=== PATIENT | female | born 1985 | race Caucasian/White ===

== ENCOUNTER 2017-12-20 15:26 | Emergency (ER) | payer BC, SELFPAY ==
[2017-12-20 15:29] VITALS: BP 121/85; PULSE 86; RESP 24; TEMP 36.8; O2SAT 98; BMI 30.6
[2017-12-20] MEDS: Ondansetron 4 MG/2 ML Vial IV (15:55)
[2017-12-20] MEDS: Morphine 4 MG/ML Syringe IV (15:56)
--- NOTE | 2017-12-20 16:00 | ED.VISSUMM ---
- ER Visit Summary Date of Service: 12/20/17 Chief Complaint: Abdominal pain History of Present Illness: The patient is a 32 F who presents with severe abdominal pain. She just found out today that she is . She is estimated at 45 weeks by dates. She complains of 3 weeks of suprapubic abdominal pain which is been mild. However 1 hour ago she abruptly had sudden onset severe sharp left-sided pelvic and abdominal pain which radiates through to the back. This is worse with position or palpation. She reports nausea with it but no vomiting. No diarrhea. She complains of urinary urgency. She states she feels like she needs to void but is unable to do so. She denies dysuria or hematuria. She has a history of kidney stones and states that this feels similar and is concerned she may have another kidney stone. No fevers. She has not had any imaging for as she just found out that she is today. Physical Examination: Afebrile vitals are stable her blood pressure is 129/85, heart rate 86 Patient tearful and appears to be in significant pain Moist mucous membranes Heart regular rate and rhythm Lungs are clear Abdomen soft nondistended she does have left lower quadrant abdominal and pelvis tenderness she does not have guarding or rebound she is unable to sit up in bed as this produces significant pain Test Results: CBC BMP unremarkable. INR normal. UA shows 25 leukocyte esterase, 50 blood otherwise normal. Quantitative hCG 188. Blood type is B+. Pelvic ultrasound shows a 3.1 cm right ovarian cyst and a heterogenous endometrium. Renal ultrasound shows mild hydronephrosis on the left with nonobstructive renal calculi. Emergency Department Course and Treatment: Based on patient's clinical presentation I was very concerned for possible ruptured ectopic. I did perform [id number] ultrasound and and unable to visualize an IUP. I do not appreciate free pelvic fluid however. I spoke to Dr. Olmstead immediately after I saw the patient. Given that her heart rate blood pressure stable we will obtain laboratory studies and send her for a pelvic ultrasound. Patient's quant returned at 188. Therefore likelihood and suspicion for ectopic was significantly less. We also ordered a renal ultrasound. Given that she does have hydronephrosis and nonobstructive calculi I suspect that she does have a ureteral calculus or a recently passed ureteral calculus. She feels much better on reevaluation after treatment with morphine and Zofran. She was advised of the need for further outpatient evaluation including repeat laboratory studies and repeat pelvic ultrasound. She was also referred to urology. She understands to return for new or worsening symptoms. She was discharged home. Treatment Plan: [] Disposition: Discharge Impression: Urolithiasis First trimester This note was generated with Zo[employer] dictation software. It may contain incorrect words, spelling, and punctuation that were not noted in review of the chart prior to signing ED Disposition - Plan for ED Patient: Chief Complaint: Flank Pain Referrals: Care Physician,No Primary [Primary Care Provider] -
[2017-12-20] MEDS: 0.9% Normal Saline 1,000 ML 1000 ML IV (16:04)
[2017-12-20 16:14] LABS: Absolute Lymphocyte Count 2.79 X10^3/ul (0.83-4.51); Absolute Neutrophil Count 6.1 X10^3/uL (2.0-7.7); Basophil# 0.04 X10^3/uL; Basophil% 0.4 % (0-1); Eosinophil# 0.16 X10^3/uL; Eosinophils% 1.5 % (0-5); Hematocrit 43.1 % (37-47); Hemoglobin 14.3 g/dl (12.0-15.0); Lymphocyte # 2.79 X10^3/ul (4.0); Lymphocyte % 26.7 % (19-41); Mean Corp Hgb Conc 33.2 g/gl (32-36); Mean Corpuscular Hgb 29.1 pg (27.0-32.0); Mean Corpuscular Volume 87.6 fL (81-99); Mean Platelet Vol. 10.7 fl (6.2-12.0); Monocyte# 1.38 X10^3/uL; Monocyte% 13.2 % (0-10); Neutrophil # 6.05 X10^3/uL (2.7-7.7); Neutrophil % 58.1 % (47-70); POSITIVE COUNT NO; POSITIVE DIFFERENTIAL NO; POSITIVE MORPHOLOGY NO; Platelet Count 278 K/mm3 (150-450); RBC Distribution Width CV 12.8 % (11.6-14.6); Red Blood Count 4.92 M/mm3 (4.2-5.4); White Blood Count 10.4 K/mm3 (4.4-11.0)
[2017-12-20 16:25] LABS: BUN 10 mg/dL (7-18); BUN/Creat Ratio 10.3 RATIO (10-20); Calcium,Total 8.7 mg/dL (8.5-10.1); Chloride 108 mmol/L (98-107); Creatinine, Serum 0.97 mg/dL (0.55-1.02); EST Glomerular Filtration Rate 71 mL/min (>60); Est Glom Filt Rate - Afr Amer 86 mL/min (>60); Estimated Creatinine Clearance 75.62 ml/min; Glucose 102 mg/dL (74-106); Potassium 3.7 mmol/L (3.5-5.1); Sodium Level 139 mmol/L (136-145)
[2017-12-20 16:26] LABS: Anion Gap 7 (5-15)
[2017-12-20 16:39] LABS: hCG Titer Quant., Serum 188 mIU/mL (<9 non-preg)
[2017-12-20 16:48] LABS: Bacteria 0 SEEN /hpf (None Seen); Mucous, Urine 0 SEEN /hpf (<or=2+); Red Blood Cells-Urine 0 SEEN /hpf (0-5); Squamous Epithelial Cells - UA 0 SEEN /hpf (5-10)
[2017-12-20 16:49] VITALS: BP 108/69; BP 120/74; BP 127/77; PULSE 70; PULSE 75; PULSE 77
[2017-12-20 16:50] VITALS: BP 121/81; PULSE 86; RESP 15; O2SAT 98
[2017-12-20 16:53] LABS: Color, Urine Yellow (Yellow); Glucose, Dipstick Normal (Normal); Ketone-Dipstick Negative (Negative); Leukocyte Esterase-Dipstick 25 /ul (Negative); Nitrite-Dipstick Negative (Negative); Occult Blood-Urine 50 /ul (Negative); Protein-Dipstick Negative (Negative); Urine Bilirubin Dipstick Negative (Negative); Urine Clarity Clear (Clear); Urine Urobilinogen Normal (Normal); Urine pH 6.5 (5.0 - 8.0)
[2017-12-20 16:59] LABS: Prothrombin Time (Protime)PT. 13.3 SECONDS (11.7-14.9)
[2017-12-20 17:01] LABS: White Blood Cells 0-5 SEEN /hpf (0-5)
[2017-12-20 18:00] VITALS: PULSE 81; RESP 19; O2SAT 98
--- NOTE | 2017-12-20 18:40 | ED.DEP ---
ED Disposition - Plan for ED Patient: Chief Complaint: Flank Pain Instructions: ED Stone Renal W Colic, ED Preg Established Normal Sxs Referrals: Care Physician,No Primary [Primary Care Provider] - Sierra Olmstead MD [STAFF PHYSICIAN] - Pedro Cano MD [STAFF PHYSICIAN] -
[2017-12-20 19:14] VITALS: BP 113/60; PULSE 80; RESP 19; O2SAT 98
--- NOTE | 2017-12-20 19:17 | ED.RN ---
REVIEWED D/C INSTRUCTIONS, FOLLOW UP CARE, AND S/S THAT WOULD WARRANT A RETURN TO THE ED WITH PT. PT VERBALIZED AN UNDERSTANDING AND DENIES FURTHER QUESTIONS FOR THIS RN. PT SKIN P/W/D, RESP EVEN AND UNLABORED, PT A&O X 3, NO DISTRESS NOTED. PT AMBULATED OUT OF ED, GAIT STEADY.
== END 2017-12-20 19:18 | disposition home or self-care (01) ==
LOC: ED 16:28
PROVIDERS: Emergency Provider Emergency Medicine
DX: O26.891 Other specified pregnancy related conditions, first trimester (principal); N13.2 Hydronephrosis with renal and ureteral calculous obstruction; O34.81 Maternal care for other abnormalities of pelvic organs, first trimester; N83.201 Unspecified ovarian cyst, right side; Z87.442 Personal history of urinary calculi; Z79.899 Other long term (current) drug therapy; Z3A.01 Less than 8 weeks gestation of pregnancy
CPT/HCPCS: 76770; 76817; 80048; 81001; 84702; 85025; 85610; 86900; 96361; 96374; 96375; 99285; A4216; J2405

== ENCOUNTER → 2017-12-28 13:05 | Outpatient (CLI) | payer BC, SELFPAY ==
[2017-12-28 14:26] LABS: hCG Titer Quant., Serum 4255 mIU/mL (<9 non-preg)
== END ==
DX: O26.891 Other specified pregnancy related conditions, first trimester (principal); R10.9 Unspecified abdominal pain
CPT/HCPCS: 36415; 84702

== ENCOUNTER → 2018-01-14 13:11 | Outpatient (CLI) | payer BC, SELFPAY ==
[2018-01-14 16:36] LABS: Chlamydia Trachomatis by PCR Negative (Negative); Neisserai gonorrhoeae by PCR Negative (Negative); Probe Check PASS; Sample Adequacy Control PASS; Specimen Processing Control PASS
[2018-01-19 13:20] LABS: HPV APTIMA, High Risk Negative (Negative)
== END ==
PROVIDERS: Visit Provider Obstetrics & Gynecology
DX: Z12.4 Encounter for screening for malignant neoplasm of cervix (principal); Z34.90 Encounter for supervision of normal pregnancy, unspecified, unspecified trimester
CPT/HCPCS: 87086; 87491; 87591; 88175; G0145

== ENCOUNTER → 2018-02-11 11:11 | Outpatient (CLI) | payer BC, SELFPAY ==
[2018-02-11 11:49] LABS: Absolute Lymphocyte Count 2.01 X10^3/ul (0.83-4.51); Absolute Neutrophil Count 6.5 X10^3/uL (2.0-7.7); Basophil# 0.02 X10^3/uL; Basophil% 0.2 % (0-1); Eosinophil# 0.04 X10^3/uL; Eosinophils% 0.4 % (0-5); Hematocrit 44.1 % (37-47); Hemoglobin 14.8 g/dl (12.0-15.0); Lymphocyte # 2.01 X10^3/ul (4.0); Lymphocyte % 21.8 % (19-41); Mean Corp Hgb Conc 33.6 g/gl (32-36); Mean Corpuscular Hgb 29.4 pg (27.0-32.0); Mean Corpuscular Volume 87.5 fL (81-99); Mean Platelet Vol. 10.2 fl (6.2-12.0); Monocyte# 0.66 X10^3/uL; Monocyte% 7.2 % (0-10); Neutrophil # 6.49 X10^3/uL (2.7-7.7); Neutrophil % 70.3 % (47-70); Platelet Count 249 K/mm3 (150-450); RBC Distribution Width CV 13.4 % (11.6-14.6); RBC Distribution Width SD 42.9 fl (35.1-43.9); Red Blood Count 5.04 M/mm3 (4.2-5.4); White Blood Count 9.2 K/mm3 (4.4-11.0)
[2018-02-11 11:50] LABS: POSITIVE COUNT NO; POSITIVE DIFFERENTIAL NO; POSITIVE MORPHOLOGY NO
[2018-02-11 13:11] LABS: HIV - WCH Non-Reactive (Nonreactive); Rubella IgG 107.5 IU/mL
[2018-02-12 05:44] LABS: Rapid Plasmin Reagin (RPR) NONREACTIVE (NONREACTIVE)
[2018-02-16 11:17] LABS: HEPATITIS B SURFACE AG Negative (Negative)
== END ==
PROVIDERS: Referring Provider Obstetrics & Gynecology; Visit Provider Obstetrics & Gynecology
DX: Z34.81 Encounter for supervision of other normal pregnancy, first trimester (principal)
CPT/HCPCS: 85025; 86592; 86703; 86762; 86850; 86900; 87340

== ENCOUNTER → 2018-06-04 15:13 | Outpatient (CLI) | payer BC, SELFPAY ==
[2018-06-04 14:09] VITALS: BMI 32.1
[2018-06-04 15:49] LABS: Absolute Lymphocyte Count 1.81 X10^3/ul (0.83-4.51); Absolute Neutrophil Count 6.2 X10^3/uL (2.0-7.7); Basophil# 0.02 X10^3/uL; Basophil% 0.2 % (0-1); Eosinophil# 0.05 X10^3/uL; Eosinophils% 0.6 % (0-5); Hematocrit 37.4 % (37-47); Hemoglobin 12.5 g/dl (12.0-15.0); Lymphocyte # 1.81 X10^3/ul (4.0); Mean Corp Hgb Conc 33.4 g/gl (32-36); Mean Corpuscular Hgb 29.3 pg (27.0-32.0); Mean Corpuscular Volume 87.8 fL (81-99); Mean Platelet Vol. 10.5 fl (6.2-12.0); Monocyte# 0.94 X10^3/uL; Monocyte% 10.4 % (0-10); Neutrophil # 6.16 X10^3/uL (2.7-7.7); Neutrophil % 68.1 % (47-70); Platelet Count 227 K/mm3 (150-450); RBC Distribution Width CV 12.6 % (11.6-14.6); RBC Distribution Width SD 39.4 fl (35.1-43.9); Red Blood Count 4.26 M/mm3 (4.2-5.4)
[2018-06-04 15:50] LABS: POSITIVE COUNT NO; POSITIVE DIFFERENTIAL NO; POSITIVE MORPHOLOGY NO
[2018-06-04 16:14] LABS: Glucose Challenge Gest 1H 50g 98 mg/dL (70-140)
== END ==
PROVIDERS: Referring Provider Obstetrics & Gynecology; Visit Provider Obstetrics & Gynecology
DX: Z34.90 Encounter for supervision of normal pregnancy, unspecified, unspecified trimester (principal)
CPT/HCPCS: 36415; 82950; 85025

== ENCOUNTER 2018-06-22 18:50 | Outpatient (CLI) | payer BC, SELFPAY ==
[2018-06-04 14:09] VITALS: BMI 32.1
[2018-06-22 19:15] VITALS: BMI 32.1
[2018-06-22 19:46] LABS: ROM Internal Control Test YES-OK TO RESULT pt. (Internal QC); ROM Patient Test Negative (Negative); Record Kit Lot#, ROM+ J7836
[2018-06-22 20:12] LABS: Mucous, Urine 0 SEEN /hpf (<or=2+); Red Blood Cells-Urine 0 SEEN /hpf (0-5)
[2018-06-22 20:27] LABS: Color, Urine Yellow (Yellow); Glucose, Dipstick Normal (Normal); Leukocyte Esterase-Dipstick 25 /ul (Negative); Nitrite-Dipstick Negative (Negative); Occult Blood-Urine 10 /ul (Negative); Protein-Dipstick 15 mg/dl (Negative); Urine Bilirubin Dipstick Negative (Negative); Urine Clarity Clear (Clear); Urine Urobilinogen Normal (Normal)
[2018-06-22 20:31] LABS: Ketone-Dipstick 150 mg/dl (Negative)
[2018-06-22 20:36] LABS: Bacteria RARE /hpf (None Seen); White Blood Cells 0-5 SEEN /hpf (0-5)
[2018-06-22 20:37] LABS: Squamous Epithelial Cells - UA 0-5 SEEN /hpf (5-10)
[2018-06-22 20:54] LABS: Fetal Fibronectin Negative
--- NOTE | 2018-06-23 21:30 | OB.TRI.HP_ITS ---
- Problem List (1) Threatened labor Status: Acute History of Present Illness Date of Service: 06/22/18 Was patient seen by the physician?: No Reason For Visit: RULE OUT LABOR History of Present Illness: 30 weeks presents with contractions and not feeling well Allergies penicillin G Allergy (Mild, Verified 06/04/18 14:09) Other - Pertinent Past Medical History Medical History: Past Medical History (Last Reviewed 06/04/18 @ 14:10 by Kari Ramires) Anxiety and depression Back problem Keyanna's disease Headache Hypothyroidism Kidney stones Recurrent UTI Surgical History: Past Surgical History (Last Reviewed 06/04/18 @ 14:10 by Kari Ramires) History of hernia surgery History of tonsillectomy eye surgery gallbladder surgery kidney stone surgery laparoscopic surgery Laboratory Studies: Laboratory Tests 06/22/18 06/22/18 06/22/18 Range/Units 19:55 19:55 19:10 Urine Color Yellow (Yellow) Urine Clarity Clear (Clear) Urine pH 7.0 (5.0 - 8.0) Ur Specific [place] 1.010 (1.002-1.030) Urine Protein 15 H (Negative) mg/dl Urine Glucose (UA) Normal (Normal) mg/dl Urine Ketones 150 H (Negative) mg/dl Urine Occult Blood 10 H (Negative) /ul Urine Nitrite Negative (Negative) Urine Bilirubin Negative (Negative) mg/dL Urine Urobilinogen Normal (Normal) mg/dl Ur Leukocyte Esterase 25 H (Negative) /ul Urine RBC 0 SEEN (0-5) /hpf Urine WBC 0-5 SEEN (0-5) /hpf Ur Squamous Epith Cells 0-5 SEEN (5-10) /hpf Urine Bacteria RARE (None Seen) /hpf Urine Mucus 0 SEEN (<or=2+) /hpf Vag Amniotic Fld Detect Negative (Negative) Fibronectin Negative NST - FHR Rate Baby A Baseline: 130 Variability:: Moderate Accelerations:: 15 x 15 Decelerations:: None NST Reactive:: Yes FHR Category:: Category I Uterine Activity:: irritability Impression/Plan threatened ptl- ffn negative rom plus negative, co flank pain- suspect kidney s tone (has history), sent urine culture
== END 2018-06-22 21:15 | disposition home or self-care (01) ==
LOC: WPOUT 18:59 → OBT 19:00
PROVIDERS: Referring Provider Obstetrics & Gynecology; Visit Provider Obstetrics & Gynecology
DX: O60.03 Preterm labor without delivery, third trimester (principal); O99.283 Endocrine, nutritional and metabolic diseases complicating pregnancy, third trimester; E06.3 Autoimmune thyroiditis; E03.9 Hypothyroidism, unspecified; O99.343 Other mental disorders complicating pregnancy, third trimester; F32.9 Major depressive disorder, single episode, unspecified; F41.9 Anxiety disorder, unspecified; Z79.899 Other long term (current) drug therapy; Z87.442 Personal history of urinary calculi; Z87.440 Personal history of urinary (tract) infections; Z3A.30 30 weeks gestation of pregnancy
CPT/HCPCS: 59025; 59050; 81001; 82731; 84112; 87086; 87088; 99218; G0378

== ENCOUNTER → 2018-07-15 14:55 | Outpatient (CLI) | payer BC, SELFPAY ==
[2018-07-15 14:52] VITALS: BMI 31.8
[2018-07-15 15:26] LABS: Absolute Lymphocyte Count 2.01 X10^3/ul (0.83-4.51); Basophil# 0.02 X10^3/uL; Basophil% 0.2 % (0-1); Eosinophil# 0.15 X10^3/uL; Eosinophils% 1.6 % (0-5); Hematocrit 35.5 % (37-47); Hemoglobin 11.7 g/dl (12.0-15.0); Lymphocyte # 2.01 X10^3/ul (4.0); Lymphocyte % 21.7 % (19-41); Mean Corpuscular Hgb 28.2 pg (27.0-32.0); Mean Corpuscular Volume 85.5 fL (81-99); Mean Platelet Vol. 10.8 fl (6.2-12.0); Monocyte# 0.99 X10^3/uL; Monocyte% 10.7 % (0-10); Neutrophil # 6.04 X10^3/uL (2.7-7.7); Neutrophil % 65.3 % (47-70); Platelet Count 221 K/mm3 (150-450); RBC Distribution Width CV 12.7 % (11.6-14.6); RBC Distribution Width SD 38.7 fl (35.1-43.9); Red Blood Count 4.15 M/mm3 (4.2-5.4); White Blood Count 9.3 K/mm3 (4.4-11.0)
[2018-07-15 15:30] LABS: POSITIVE COUNT NO; POSITIVE DIFFERENTIAL NO; POSITIVE MORPHOLOGY NO
[2018-07-15 15:48] LABS: ALB/GLOB Ratio 0.6 RATIO (0.9-2.4); AST(SGOT) 20 U/L (15-37); Alanine Aminotransfer ALT/SGPT 20 U/L (13-56); Albumin, Serum 2.4 g/dL (3.2-5.0); Alkaline Phosphatase 122 U/L (45-117); Anion Gap 8 (5-15); BUN 4 mg/dL (7-18); Calcium,Total 8.1 mg/dL (8.5-10.1); Chloride 108 mmol/L (98-107); Creatinine, Serum 0.57 mg/dL (0.55-1.02); EST Glomerular Filtration Rate 130 mL/min (>60); Est Glom Filt Rate - Afr Amer 158 mL/min (>60); Globulin 3.7 g/dL (2.2-4.2); Glucose 93 mg/dL (74-106); Potassium 3.2 mmol/L (3.5-5.1); Protein, Total 6.1 g/dL (6.4-8.2); Sodium Level 137 mmol/L (136-145)
== END ==
PROVIDERS: Visit Provider Obstetrics & Gynecology
DX: L29.9 Pruritus, unspecified (principal)
CPT/HCPCS: 36415; 80053; 85025

== ENCOUNTER → 2018-07-26 17:07 | Outpatient (CLI) | payer BC, SELFPAY ==
[2018-07-26 15:57] VITALS: BMI 32.4
[2018-07-26 17:31] LABS: Absolute Lymphocyte Count 2.17 X10^3/ul (0.83-4.51); Absolute Neutrophil Count 5.7 X10^3/uL (2.0-7.7); Basophil# 0.02 X10^3/uL; Basophil% 0.2 % (0-1); Eosinophil# 0.19 X10^3/uL; Hematocrit 34.6 % (37-47); Hemoglobin 11.6 g/dl (12.0-15.0); Lymphocyte # 2.17 X10^3/ul (4.0); Lymphocyte % 23.2 % (19-41); Mean Corp Hgb Conc 33.5 g/gl (32-36); Mean Corpuscular Hgb 28.2 pg (27.0-32.0); Mean Corpuscular Volume 84.2 fL (81-99); Mean Platelet Vol. 10.5 fl (6.2-12.0); Monocyte# 1.22 X10^3/uL; Neutrophil # 5.74 X10^3/uL (2.7-7.7); Neutrophil % 61.4 % (47-70); Platelet Count 203 K/mm3 (150-450); RBC Distribution Width SD 39.5 fl (35.1-43.9); Red Blood Count 4.11 M/mm3 (4.2-5.4); White Blood Count 9.4 K/mm3 (4.4-11.0)
[2018-07-26 18:02] LABS: POSITIVE COUNT NO; POSITIVE DIFFERENTIAL NO; POSITIVE MORPHOLOGY NO
[2018-07-26 18:16] LABS: ALB/GLOB Ratio 0.6 RATIO (0.9-2.4); AST(SGOT) 21 U/L (15-37); Alanine Aminotransfer ALT/SGPT 19 U/L (13-56); Albumin, Serum 2.4 g/dL (3.2-5.0); Alkaline Phosphatase 134 U/L (45-117); Anion Gap 5 (5-15); BUN 4 mg/dL (7-18); BUN/Creat Ratio 7.6 RATIO (10-20); Calcium,Total 8.2 mg/dL (8.5-10.1); Chloride 108 mmol/L (98-107); Creatinine, Serum 0.52 mg/dL (0.55-1.02); EST Glomerular Filtration Rate 144 mL/min (>60); Est Glom Filt Rate - Afr Amer 174 mL/min (>60); Globulin 3.7 g/dL (2.2-4.2); Glucose 84 mg/dL (74-106); Potassium 3.5 mmol/L (3.5-5.1); Protein, Total 6.1 g/dL (6.4-8.2); Sodium Level 135 mmol/L (136-145)
== END ==
PROVIDERS: Referring Provider Obstetrics & Gynecology; Visit Provider Obstetrics & Gynecology
DX: L29.9 Pruritus, unspecified (principal)
CPT/HCPCS: 36415; 80053; 85025

== ENCOUNTER → 2018-08-02 14:46 | Outpatient (CLI) | payer BC, SELFPAY ==
[2018-07-26 15:57] VITALS: BMI 32.4
--- NOTE | 2018-08-02 14:49 | US_ITS ---
STUDY: SECOND AND THIRD TRIMESTER OBSTETRICAL ULTRASOUND - LIMITED REASON FOR EXAM: Female, 33 years old. Growth. LMP: November 20, 2017. PRIOR ULTRASOUND: December 20, 2017. TECHNIQUE: TECHNICAL QUALITY: Adequate. FINDINGS: There is a single intrauterine fetus. The fetus is in a cephalic presentation. There is demonstrated cardiac activity with a heart rate of 139 bpm. There is a normal amniotic fluid volume. The largest amniotic fluid pocket measures 7.9 cm. The amniotic fluid index (ELISEO) is 20.56 cm. The placenta is anterior in location and is not low lying. There are Grade 2 placental changes. The cervix measures 4.24 cm cm in length. BIOMETRY: BPD: 9.15 cm: 37 weeks, 1 days HC: 32.98 cm: 37 weeks, 4 days AC: 33 cm: 37 weeks, 0 days FL: 6.93 cm: 35 weeks, 4 days Age by LMP: 36 weeks, 3 days. CHINO by LMP: August 27, 2018.. age by current US: 36 weeks, 6 days. CHINO by current US: August 24, 2018. Estimated weight: 3000 grams, +/- 438 grams, 60 percentile. US/OB Limited With Biometrics IMPRESSION: 1. Live single intrauterine at 36 weeks, 6 days. CHINO is August 24, 2018. 2. EFW 3000 g. 3. ELISEO of 20.56 cm. 4. Anterior grade 2 placenta. 5. Vertex presentation. Electronically Signed: Bon Blevins DO at 23:59 EDT Tel [phone], Service support ,
--- NOTE | 2018-08-02 14:55 | US_ITS ---
STUDY: SECOND AND THIRD TRIMESTER OBSTETRICAL ULTRASOUND - LIMITED REASON FOR EXAM: Female, 33 years old. Growth. LMP: November 20, 2017. PRIOR ULTRASOUND: December 20, 2017. TECHNIQUE: TECHNICAL QUALITY: Adequate. FINDINGS: There is a single intrauterine fetus. The fetus is in a cephalic presentation. There is demonstrated cardiac activity with a heart rate of 139 bpm. There is a normal amniotic fluid volume. The largest amniotic fluid pocket measures 7.9 cm. The amniotic fluid index (ELISEO) is 20.56 cm. The placenta is anterior in location and is not low lying. There are Grade 2 placental changes. The cervix measures 4.24 cm cm in length. BIOMETRY: BPD: 9.15 cm: 37 weeks, 1 days HC: 32.98 cm: 37 weeks, 4 days AC: 33 cm: 37 weeks, 0 days FL: 6.93 cm: 35 weeks, 4 days Age by LMP: 36 weeks, 3 days. CHINO by LMP: August 27, 2018.. age by current US: 36 weeks, 6 days. CHINO by current US: August 24, 2018. Estimated weight: 3000 grams, +/- 438 grams, 60 percentile. US/Biophysical Prof W/O Non Stres IMPRESSION: 1. Live single intrauterine at 36 weeks, 6 days. CHINO is August 24, 2018. 2. EFW 3000 g. 3. ELISEO of 20.56 cm. 4. Anterior grade 2 placenta. 5. Vertex presentation. Electronically Signed: Bon Blevins DO at 23:59 EDT Tel [phone], Service support ,
[2018-08-02 17:51] LABS: Group B Strep DNA By PCR POSITIVE (Negative); Probe Check PASS
== END ==
PROVIDERS: Obstetrics & Gynecology; Referring Provider Nurse Practitioner Women's Health; Visit Provider Nurse Practitioner Women's Health
DX: O09.93 Supervision of high risk pregnancy, unspecified, third trimester (principal); Z3A.00 Weeks of gestation of pregnancy not specified
CPT/HCPCS: 76816; 76819; 87653

== ENCOUNTER 2018-08-02 16:35 | Inpatient (IN) | payer BC, SELFPAY ==
[2018-08-02 16:32] VITALS: BMI 32.4
--- NOTE | 2018-08-02 17:26 | PCM.HPOB.BLA ---
- Problem List (1) Abnormal genetic test during Status: Acute Comment: Abnormal NIPT- referred to [facility]. [facility]. (2) Cholestasis during Status: Acute Qualifiers: Comment: growth us RASHEEDA, twice weekly BPPS, weekly visits, and deliver at 37 weeks. kick counts. ursodiol (3) Depression affecting Status: Acute Comment: celexa, trazodone, and vistaril, encouraged counseling. (4) Family history of congenital heart defect Status: Acute Comment: ultrasound/consult with M possible echo (5) Genital herpes affecting Status: Acute Qualifiers: Comment: acyclovir at 36 weeks and PRN (6) Hypothyroidism (acquired) Status: Acute Comment: check tsh and free t4 every trimester, recently tested, sees endocrine (7) Low serum potassium Status: Acute (8) Status: Acute Qualifiers: Comment: carrier screening negative in the past. plan NIPT and AFP. Anatomy US-repeat 2 weeks reevaluate cardiac views. Growth US every 4 weeks. growth scan q4w after 28 weeks and weekly NST after 32 weeks (9) Supervision of high risk in third trimester Status: Acute Comment: PRR CHINO 08/27/18 girl Susan Sanchez Fredo History and Physical Date of Admission: 08/02/18 Intake Vital Signs 08/02/18 Height 5 ft 5 in 08/02/18 Weight: 198 lb 08/02/18 Body Mass Index (BMI) 32.9 Intake Visit Reasons: 36 WEEK OB/NST Chief Complaint: est ob Structured Cabling Technician Required: No Is patient in pain?: No Allergies penicillin G Allergy (Mild, Verified 08/02/18 16:03) Other Medications rizatriptan 10 mg tablet 10 mg PO ONCE 05/18/17 [History Confirmed 08/02/18] Vit No.130/Iron/Folic [ Vitamins] 1 ea PO DAILY 12/20/17 [History Confirmed 08/02/18] lactobacillus combination no.8 3 billion cell capsule 3,000 mmu cells PO DAILY 12/29/17 [History Confirmed 08/02/18] metoclopramide 10 mg tablet 10 mg PO TID 01/14/18 [History Confirmed 08/02/18] hydroxyzine HCl 25 mg tablet 25 mg PO TID-QID PRN #60 tab 03/11/18 [Rx Confirmed 08/02/18] Citalopram Hydrobromide [Citalopram HBr] 40 mg PO QDAY 06/22/18 [History Confirmed 08/02/18] Levothyroxine Sodium [Synthroid] See Rx Instructions .ROUTE .COMPLEX 06/22/18 [History Confirmed 08/02/18] valacyclovir 500 mg tablet 500 mg PO DAILY #90 tab 07/07/18 [Rx Confirmed 08/02/18] trazodone 100 mg tablet 50 mg PO QHS PRN #30 tab 07/26/18 [Rx Confirmed 08/02/18] ursodiol 300 mg capsule 300 mg PO TID #30 cap 07/31/18 [Rx Confirmed 08/02/18] Last Menstral Period: 11/20/17 Zika: Zika virus screening: Negative : No PFSH PFSH Medical History Anxiety and depression (Acute) Back problem (Acute) Keyanna's disease (Acute) Headache (Acute) Hypothyroidism (Acute) Kidney stones (Acute) Recurrent UTI (Acute) Surgical History History of hernia surgery (Acute) History of tonsillectomy (Acute) eye surgery (Acute) gallbladder surgery (Acute) kidney stone surgery (Acute) laparoscopic surgery (Acute) Family History Mother CVA (cerebral vascular accident) Myocardial infarction Heart disease Grandmother Cancer ovarian cancer Colon cancer Breast cancer Thyroid disorder Social History Smoking Status: Never smoker alcohol intake: never substance use type: does not use caffeine: Yes what type of physical activity do you participate in: none seatbelt use: always do you feel safe at home: Yes additional social history: -Pro- Patient works at [id number] Pregancy History 2 Elective abortions Hx Para 1 Spontaneous abortions Hx # Term Pregnancies Ectopic pregnancies Hx # Pregnancies Multiple births # of living children Past Pregnancies Del. Date Name GA/Weeks Outcome Route Bth Weight Gen Labor Lgth Anesthesia Del Locatn Provider FOB 11/19/13 Juma 37 live - full term 6lbs 9oz Male 29 hours epidural [facility] Delivery Date: 11/19/13 On 12/29/17 @ 10:13 Vanessa Wang No issues during . Had infection after delivery. HPI 36 WEEK OB/NST: Details: SAL BROWN is a 33 year old who presents for routine OB visit. OB Visit CHINO Calculator Estimated Delivery Date 08/27/18 Based on LMP (certain) 11/20/17 Current WG 36w 3d Number 1 Expected Delivery Route/Plan Specific Issue/Plans flu vaccine: declines minichart given: given tdap vaccine: given rhogam: na LARC form signed: [] labor support person: Fredo pain management: [] cut cord/dad catch: [] : [] PP control planned: [] special requests: [] Initial Weight: Not Recorded Date EGA Weight BP Urine Prot Glucose FHR FuHt Pres Mov CTX Dilation Effaced St Visit Note 02/11/18 11w 6d 183 lb 4 oz 116/62 Negative Negative 160 no vb crmaping 03/11/18 15w 6d 184 lb 148/90 160 elevated bp today but very anxious have been normal in the past. she has following with [facility] for abnormal NIPT screening, normal genetics. discussed risks of early placental insufficiency. recommend 40 mg celexa 05/12/18 24w 5d 191 lb 8 oz 120/72 Negative Negative 148 Active Doing well. Mood better with celexa. No VB, LOF 06/04/18 28w 0d 193 lb 4 oz 110/68 Negative Negative 140 28 Cephalic Active no vb lof good fm no regular ctx 07/02/18 32w 0d 191 lb 120/80 Negative Negative 140 32 Cephalic Active absent no vb lof good fm n oregular ctx growth us next week 07/15/18 33w 6d 194 lb 8 oz 128/78 Trace Negative 130 34 Cephalic Active absent no vb lof good fm no regular ctx. start weekly nsts 07/26/18 35w 3d 195 lb 126/74 Negative Negative 130 35 Cephalic Decr absent co itching- repeat liver enzymes and bile acids. reviwed kick counts and labor precautions discussed possible IOL 39 weeks 08/02/18 36w 3d 198 lb absent 1 5: 0 -3 only 6/8 BPP with decreased movement- recommend IOL due to cholestasis and borderline testing. plan fb and pitocin Visit Notes Visit Date: 08/02/18 ??only 6/8 BPP with decreased movement- recommend IOL due to cholestasis and borderline testing. plan fb and pitocin ??Sierra Olmstead MD on 08/02/18 Visit Date: 07/26/18 ??co itching- repeat liver enzymes and bile acids. reviwed kick counts and labor precautions discussed possible IOL 39 weeks ??Sierra Olmstead MD on 07/26/18 Visit Date: 07/15/18 ??no vb lof good fm no regular ctx. start weekly nsts ??Sierra Olmstead MD on 07/15/18 Visit Date: 07/02/18 ??no vb lof good fm n oregular ctx growth us next week ??Sierra Olmstead MD on 07/02/18 Visit Date: 06/04/18 ??no vb lof good fm no regular ctx ??Sierra Olmstead MD on 06/04/18 Visit Date: 05/12/18 ??Doing well. Mood better with celexa. No VB, LOF ??JESSICA Benavides on 05/12/18 Visit Date: 03/11/18 ??recommend 40 mg celexa ??Sierra Olmstead MD on 03/16/18 ??elevated bp today but very anxious have been normal in the past. she has following with [facility] for abnormal NIPT screening, normal genetics. discussed risks of early placental insufficiency. ??Sierra Olmstead MD on 03/16/18 Visit Date: 02/11/18 ??no vb crmaping ??Sierra Olmstead MD on 02/14/18 ACOG First Trimester First Trimester: Second Trimester Second Trimester: Signs and Symptoms of Labor, Selecting a care provider, Reproductive Life Planning, Care Planning, Tobacco Cessation, Depression/Anxiety and Intimate Partner Violence Third Trimester Third Trimester: Pain Management Plans, Labor support person(s), Immediate Larc, Movement Monitoring and Infant Feeding Yes ; discussed Trial of Labor after Counseling or discussed Circumcision preference Diagnostics Diagnostics Labs Blood Type B POSITIVE 02/11/18 Antibody Screen NEGATIVE 02/11/18 Hct 34.6 % (37-47) L 07/26/18 Hgb 11.6 g/dl (12.0-15.0) L 07/26/18 Obstetrics Ultrasound 08/02/18 Rubella IgG Antibody 107.5 IU/mL 02/11/18 RPR NONREACTIVE (NONREACTIVE) 02/11/18 Hep Bs Antigen Negative (Negative) 02/11/18 Glucose 1 Hr 50 gm 98 mg/dL (70-140) 06/04/18 Miscellaneous Test 07/26/18 Details: HIV: Urine Culture: Sequential Screen: NIPT Screen: ROS Const Reports system reviewed and no additional complaints, except as docu Card Reports system reviewed and no additional complaints, except as docu Resp Reports system reviewed and no additional complaints, except as docu GI Reports system reviewed and no additional complaints, except as docu, Reports nausea Reports system reviewed and no additional complaints, except as docu Musc Reports system reviewed and no additional complaints, except as docu Exam Const General: cooperative, healthy appearing, comfortable, anxious HENMT Head: normal to inspection Nose: external nose normal Face and sinus: normal facial exam Neck Neck: normal visual inspection, full ROM, no lymphadenopathy Thyroid: thyroid normal Chest Chest palpation & inspection: normal inspection of the chest Resp Effort & Inspection: normal respiratory effort GI Inspection: normal to inspection Palpation: soft, other (gravid uterus) Other: infant vertex and appropriate size for gestational age Other: Cervical Exam: Extrem General: pedal edema Assessment & Plan Problems 1. Cholestasis during in third trimester O26.613; K83.1 growth us RASHEEDA, twice weekly BPPS, weekly visits, and deliver at 37 weeks. kick counts. ursodiol 2. Abnormal test O28.9 Plan plan pitocin and fb iol epidural PRN [place] now check cmp Orders Orders: POC Urinalysis 2 Dip (Clinic) Today Culture, Group B Streptococcus Today O09.93 Group B Strep DNA By PCR Today O09.93 Coding Level of Care Code OB Routine Diagnoses Cholestasis during in third trimester O26.613; K83.1 ??Trimester: third trimester Abnormal test O28.9
[2018-08-02] MEDS: Lactated Ringers 1,000 ML 50 ML IV (17:30)
[2018-08-02] MEDS: Betamethasone/Betamethasone 30 MG/5 ML Vial 12 MG IM (17:35)
[2018-08-02 17:53] LABS: Absolute Lymphocyte Count 2.16 X10^3/ul (0.83-4.51); Absolute Neutrophil Count 7.9 X10^3/uL (2.0-7.7); Basophil# 0.02 X10^3/uL; Basophil% 0.2 % (0-1); Eosinophil# 0.08 X10^3/uL; Eosinophils% 0.7 % (0-5); Hematocrit 36.3 % (37-47); Hemoglobin 12.2 g/dl (12.0-15.0); Lymphocyte # 2.16 X10^3/ul (4.0); Lymphocyte % 19.6 % (19-41); Mean Corp Hgb Conc 33.6 g/gl (32-36); Mean Corpuscular Hgb 27.8 pg (27.0-32.0); Mean Corpuscular Volume 82.7 fL (81-99); Mean Platelet Vol. 11.6 fl (6.2-12.0); Monocyte# 0.89 X10^3/uL; Monocyte% 8.1 % (0-10); Neutrophil # 7.86 X10^3/uL (2.7-7.7); Neutrophil % 71.2 % (47-70); Platelet Count 223 K/mm3 (150-450); RBC Distribution Width CV 13.3 % (11.6-14.6); RBC Distribution Width SD 39.2 fl (35.1-43.9); Red Blood Count 4.39 M/mm3 (4.2-5.4)
[2018-08-02 17:54] LABS: POSITIVE COUNT NO; POSITIVE DIFFERENTIAL NO; POSITIVE MORPHOLOGY NO
[2018-08-02 18:04] VITALS: BMI 32.8
[2018-08-02 18:12] LABS: ALB/GLOB Ratio 0.6 RATIO (0.9-2.4); AST(SGOT) 17 U/L (15-37); Alanine Aminotransfer ALT/SGPT 15 U/L (13-56); Albumin, Serum 2.5 g/dL (3.2-5.0); Alkaline Phosphatase 149 U/L (45-117); Anion Gap 8 (5-15); BUN 5 mg/dL (7-18); BUN/Creat Ratio 8.7 RATIO (10-20); Calcium,Total 8.4 mg/dL (8.5-10.1); Chloride 108 mmol/L (98-107); Creatinine, Serum 0.58 mg/dL (0.55-1.02); EST Glomerular Filtration Rate 128 mL/min (>60); Est Glom Filt Rate - Afr Amer 155 mL/min (>60); Globulin 3.9 g/dL (2.2-4.2); Glucose 62 mg/dL (74-106); Potassium 3.7 mmol/L (3.5-5.1); Protein, Total 6.4 g/dL (6.4-8.2); Sodium Level 137 mmol/L (136-145)
[2018-08-02] MEDS: 0.9% Normal Saline 100 ML IV.SOLN. INTRA-UTER (20:07)
[2018-08-02] MEDS: Oxytocin 30 units/NS 500 ml 30 UNITS/500 ML IV.SOLN IV (20:22)
[2018-08-02] MEDS: Nalbuphine 10 MG/ML Ampul IV (22:43)
[2018-08-03] MEDS: Lactated Ringers 1,000 ML 50 ML IV (02:49)
[2018-08-03] MEDS: Mag Hydrox/Al Hydrox/Simeth 30 ML UDC PO (02:49)
[2018-08-03] MEDS: Nalbuphine 10 MG/ML Ampul IV (04:04)
--- NOTE | 2018-08-03 06:19 | PLAC_PTH ---
PATIENT: SAL BROWN LOC: WP U#:[id number] AGE/SX: 33/F ROOM: WP010 RE08/02/[address]: Dr. Sierra Olmstead MD : 1985 BED: 1 DIS: 08/04/2018 SPEC #: [id number] RECD: 08/03/18 09:31 STATUS: [place] MED #: [id number] DOYLE: 08/03/18 06:[address]: Sierra Olmstead DEPT: SURGICAL PATHOLOGY RECD BY: Satya Kerr ENTERED: 08/03/18 10:48 SP TYPE: PLACENTA OTHR DR: No Primary Care Phys Tissues: Placenta, NOS Procedures: Surgery Specimen Level V HEADER OPERATION: Vaginal delivery PRE-OP DIAGNOSIS: Vaginal delivery TISSUE SUBMITTED: Placenta MICROSCOPIC DIAGNOSIS Placenta: Placental disc - third trimester placenta (597 gm). - Focal area of submembranous hematoma. Membranes - no pathologic diagnosis. Umbilical cord - three blood vessels and no pathologic diagnosis. SJ:maria teresa 08/05/18 COMMENT Focal area of separate blood clots are also noted. MICROSCOPIC DESCRIPTION Slides are reviewed. GROSS DESCRIPTION SPECIMEN: PLACENTA / CLINICAL INFORMATION: A. Weight: 2.776 KG B. Gestational Age: 36 weeks C. Sex: Female PLACENTAL WEIGHT (POST FIXATION): 597 gm PLACENTAL DIMENSIONS: 17 x 16 x 3.2 cm PLACENTAL SHAPE: Usual ovoid PLACENTAL WEIGHT FOR GESTATIONAL AGE: >99th percentile MEMBRANES - Present A. Insertion: Marginal B. Site of rupture from edge: At edge of placental disc C. Color of membrane: [place]ema-nye D. Abnormalities: None UMBILICAL CORD - Present A. Color: [place]ema-nye B. Insertion: Membranous C. Length: 29 cm D. Diameter: 1.5 cm E. Number of vessels: Three F. Abnormalities: None PLACENTAL DISC - Present A. Color of surface: [place] B. surface abnormalities: None C. Maternal cotyledons: Intact with minimal tears D. Attached retro placental clot: No clot E. Cut surface: Dark red and spongy F. Lesions: There is a submembranous hematoma measuring 14 x 10 x 0.8 cm G. Separate clot: 11 x 6 x 2 cm SECTIONS SUBMITTED: 1. Umbilical cord ( end notched) 2. Membrane roll and submembranous hematoma 3. Placental disc, and maternal surfaces 4. Placental disc, and maternal surfaces 5. Placental disc, and maternal surfaces AM:maria teresa 08/04/18 TC:5 CPT: 50800
[2018-08-03] MEDS: HYDROmorphone 1 MG/ML Syringe IV (06:23)
[2018-08-03] MEDS: Oxytocin 30 units/NS 500 ml 30 UNITS/500 ML IV.SOLN 334 UNITS IV (06:25)
--- NOTE | 2018-08-03 06:29 | OP.PCM_ITS ---
Problem List (1) Abnormal genetic test during Status: Acute Comment: Abnormal NIPT- referred to [facility]. [facility]. (2) Cholestasis during Status: Acute Qualifiers: Comment: growth us RASHEEDA, twice weekly BPPS, weekly visits, and deliver at 37 weeks. kick counts. ursodiol (3) Depression affecting Status: Acute Comment: celexa, trazodone, and vistaril, encouraged counseling. (4) Family history of congenital heart defect Status: Acute Comment: ultrasound/consult with M possible echo (5) Genital herpes affecting Status: Acute Qualifiers: Comment: acyclovir at 36 weeks and PRN (6) Hypothyroidism (acquired) Status: Acute Comment: check tsh and free t4 every trimester, recently tested, sees endocrine (7) Low serum potassium Status: Acute (8) Status: Acute Qualifiers: Comment: carrier screening negative in the past. plan NIPT and AFP. Anatomy US-repeat 2 weeks reevaluate cardiac views. Growth US every 4 weeks. growth scan q4w after 28 weeks and weekly NST after 32 weeks (9) Supervision of high risk in third trimester Status: Acute Comment: PRR CHINO 08/27/18 girl Susan Sanchez Fredo Report of Operation Date of Procedure: 08/04/18 Pre-Operative Diagnosis: iol cholestasis, abnormal testing Post-Operative Diagnosis: same Vaginal Delivery Maternal Presentation: Medically Indicated Induction iol 36w4d for abnormal testing 6/8 BPP with cholestasis. Method of Induction: Pitocin, [facility] Reason for Induction: - - cholestasis and abnormal BPP Amniotic Membrane Rupture Type: Artificial Amniotic Fluid Description: Clear Final CHINO: 08/27/18 Gestational age: 36 Weeks and 4 Days Date of Procedure: 08/03/18 Pre-Operative Diagnosis: iol cholestasis abnormal testing Post-Operative Diagnosis: same Surgery/ Procedure Performed: Spontaneous Vaginal Delivery Type of Anesthesia: Pudendal block with 1% lidocaine Description of Procedure: Patient began pushing and the vagina was prepped with Betadine and bilateral pudendal block was placed by a located in the bilateral ischial spines and going 2 cm medial and posterior into the sacrospinous ligament 10 cc of lidocaine was injected without complication and a small midline episiotomy was cut to aid in expedient delivery of the head and delivered the head in the RICO presentation. The head was delivered atraumatically and a loose nuchal cord ?1 was identified and easily reduced over the 's head. The anterior and posterior shoulders delivered without complication followed by the rest of the and the was placed on the maternal abdomen. Delayed cord clamping was employed for approximately 60 seconds. Cord was clamped and cut and gentle traction was applied to the cord and the placenta delivered spontaneously immediately following it was noted to be intact with three-vessel cord. The perineum and vagina were inspected and 1st degree perineal laceration was repaired in the usual fashion. EBL was 100 cc. Patient and infant tolerated delivery well. Presentation: RICO Placental Delivery Description: Spontaneous Placenta Disposition: [facility] Cord Vessel Description: 3 Vessels Cord Entanglement: Around neck x 1, loose A gender: Female Episiotomy Description: Midline, Perineal Extension/lac, 1st degree Laceration: Perineal Extension/lac, 1st degree Medications given after delivery: IV Pitocin Complications: None
[2018-08-03] MEDS: Oxytocin 30 units/NS 500 ml 30 UNITS/500 ML IV.SOLN 167 UNITS IV (06:55)
[2018-08-03] MEDS: Naproxen 250 MG Tablet 500 MG PO ×2 (07:37→16:02)
[2018-08-03] MEDS: Levothyroxine 112 MCG Tablet PO (08:17)
[2018-08-03 11:55] VITALS: BP 115/55; PULSE 90; RESP 14; TEMP 37.2; O2SAT 96
[2018-08-03] MEDS: Acetaminophen 500 MG Tablet 1000 MG PO ×2 (13:15→20:06)
[2018-08-03 15:40] VITALS: BP 109/61; PULSE 81; RESP 16; TEMP 36.8
[2018-08-03 20:00] VITALS: BP 110/64; PULSE 80; RESP 18; TEMP 36.6; O2SAT 98
[2018-08-04] MEDS: Naproxen 250 MG Tablet 500 MG PO (01:02)
[2018-08-04 01:03] VITALS: BP 108/62; PULSE 70; RESP 18; TEMP 36.6; O2SAT 99
[2018-08-04 05:00] VITALS: BP 108/62; PULSE 78; RESP 18; TEMP 36.6
[2018-08-04] MEDS: Levothyroxine 112 MCG Tablet PO (06:04)
[2018-08-04 08:00] VITALS: BP 101/51; PULSE 74; RESP 16; TEMP 36.7; O2SAT 96
--- NOTE | 2018-08-04 08:23 | PCM.PN.OB ---
Subjective: doing well no complaints pain controlled no CP SOB N V ambulating well tolerating po lochia moderate, going well - Physical Exam General: Alert, Oriented x3 Vital Signs Temp Pulse Resp BP Pulse Ox 98.1 F 74 16 101/51 L 96 08/04/18 08:00 08/04/18 08:00 08/04/18 08:00 08/04/18 08:00 08/04/18 08:00 Oxygen Delivery Method Room Air Weight: 197 lb 1.492 oz Body Mass Index (BMI) 32.8 Intake and Output for Last 24 Hours 08/02/18 08/03/18 08/04/18 23:59 23:59 23:59 Intake Total 1385 / 1385 Output Total 1200 / 1200 Balance 185 / 185 Medical Necessity - Tobacco Use Smoking Status: Never smoker Assessment/Plan All Active Problems (Last Reviewed 08/02/18 @ 16:03 by Kari Ramires) Supervision of high risk in third trimester (Acute) Cholestasis during (Acute) Low serum potassium (Acute) Abnormal genetic test during (Acute) Genital herpes affecting (Acute) (Acute) Family history of congenital heart defect (Acute) Depression affecting (Acute) Hypothyroidism (acquired) (Acute) Chronic pruritus (Resolved) Supervision of normal (Resolved) Threatened labor (Resolved) US repeat every 4 weeks, MFM at 32 weeks (Resolved) s/p PPD # 1 1. routine post delivery care 2. breast feeding- support given 3. rh positive 4. rubella immune
--- NOTE | 2018-08-04 09:47 | CASEMGMT ---
Addendum entered and electronically signed by Ame Odom 08/05/18 09:39: Reviewed and approve [employer] student audit intern documentation below. -Ame Odom, TONIO, LUNCH WAGON OPERATOR Original Note: Social Work Labor and Delivery Date of referral: 08/03/18 Time of referral: 1437 Referred by: Dr. Olmstead Date of intervention: 08/04/18 Time of intervention: 0920am Reason for Referral: history of depression and anxiety History obtained from: medical record, mother of baby (MOB) Concha Ramirez. Household composition: MOB lives with father of the baby Pro (FOB) and their son Juma (4) and now Maurice. MOB denies any history of domestic violence and reports no safety concerns. Patient's parent guardian status: MOB and FOB are . MOB and FOB do not have any children outside their relationship. Medical history: JOSE GUADALUPE has diagnosis of anxiety and depression. JOSE GUADALUPE began PNC at 11 weeks. Baby Maurice was born on 08/03/18 at 6lbs and 2oz with scores of 8 and 9. Educational Status: JOSE GUADALUPE has an associates degree and confirmed to be able to read, write, and comprehend. Financial Status: JOSE GUADALUPE works for the department of [employer] and will have roughly 12 weeks off work. DANIELA is in the and will have roughly two weeks off work. supplies: JOSE GUADALUPE reported to have car seat, crib, bassinet, clothing, diapers, wipes, and formula. Childcare/givers: JOSE GUADALUPE and FOB are primary caregivers. JOSE GUADALUPE reported that her mother and brother are supplemental caregivers. Transportation: JOSE GUADALUPE reported no issues with transportation. Programs/Agencies involved: JOSE GUADALUPE and DANIELA are not linked with any programs or agencies. JOSE GUADALUPE denied [facility] referral. Children Services/Legal Issues: JOSE GUADALUPE denied any history with children services or any legal issues. Behavioral Health Issues: Mental Health History: JOSE GUADALUPE has been diagnosed with depression and anxiety. JOSE GUADALUPE is prescribed celexa, trazodone, and vistaril for treatment. JOSE GUADALUPE also attends counseling at [email or web address] with counselor Shoshana. JOSE GUADALUPE denies past or present thoughts or attempts of suicide. Substance Use History: MOB denied any history of substance usage or current use. Family History: MOB did not report any concerns with family history. Drug Screens: JOSE GUADALUPE was not administered any drug screens. Family/Social Stressors: MOB did not report any stressors. Support systems: MOB reported that family is support system specifically her mother and brother. PPD/ Shaken baby/ Safe sleeping: MOB reviewed and understands safe sleeping and shaken baby precautions. MOB reviewed PDD signs and symptoms with social work professor audit intern and understands. ASSESSMENT: MOB was in room with FOB who was sleeping and baby Everlee who was also sleeping. MOB was calm and pleasant. MOB spoke about general information and answered social work professor interns questions appropriately. MOB also spoke about anxiety and depression with coping strategies of attending counseling, working out, and coloring. MOB reported to have post depression with of first baby Juma. MOB did not receive treatment for PPD and began celexa during this with Everlee to help with anxiety and depression. MOB reported that counseling has helped with loss of brother from 15 years ago and recent anxiety and PPD. MOB does not plan to stop counseling or celexa. MOB denies any current feelings of depression/PDD. MOB reports to be happy and excited about baby Everlee. PLAN: MOB to go home with baby. Social work provided PPD packet and [facility] Resources packet. WIC/[facility] information also provided. No other services indicated or requested at this time. -Jeannie Bone, [employer] Student Spectroscopist.
--- NOTE | 2018-08-04 10:27 | DCINST_ITS ---
Discharge Diet: No Restrictions Discharge Activity: Return to Normal Activity, May not drive while taking narcotic pain medications., May Shower May resume sexual activity in: 4-6 weeks Call your doctor if your incision/area has: Continuous Slow Oozing, Sudden Increased Bleeding, Increased Pain/ Swelling, Increased Redness, Foul Smelling Discharge Additional Instructions: If you experience any of the following, contact your healthcare provider. * Bleeding that soaks a pad every hour for 2 hours * Fever 100.4 or higher * Unrelieved incision or abdominal pain * Swelling, redness, discharge or bleeding from your incision or episiotomy site * Your incision begins to separate * Problems urinating (including inability to urinate or burning while urinating). * Visual changes * Severe headache * Flu-like symptoms * Pain or redness in one of both of your breasts * Pain, warmth, tenderness or swelling in your legs, especially the calf area * Frequent nausea and vomiting * Symptoms of depression or anxiety If you experience any of the following, call 911 or go to the nearest Emergency Room. * Chest pain * Problems breathing * Seizure activity * Partial or complete paralysis of a body part, slurred speech, weakness or drooping of the face, or a sudden inability to walk or hold your balance Allergies/Adverse Reactions: Allergies penicillin G Allergy (Mild, Verified 08/02/18 18:07) Other yeast infections Medications to take at Discharge Vit No.130/Iron/Folic [ Vitamins] 1 ea PO DAILY 12/20/17 lactobacillus combination no.8 3 billion cell capsule 3,000 mmu cells PO DAILY 12/29/17 Flucelvax Quad [id number] (PF) 60 mcg (15 mcg x 4)/0.5 mL IM syringe 0.5 ml IM ONCE #1 ml NS 02/11/18 Citalopram Hydrobromide [Citalopram HBr] 40 mg PO QDAY 06/22/18 Levothyroxine Sodium [Synthroid] See Rx Instructions .ROUTE .COMPLEX 06/22/18 Ursodiol 300 mg PO TID 08/02/18 Valacyclovir HCl [Valtrex] 500 mg PO DAILY 08/02/18 Please Follow Up With: Sierra Olmstead MD - [phone] When: Call to make an appointment with your doctor in 6 weeks. If you had elevated Blood pressure or 4th degree laceration you will need to be seen in 2 weeks. Primary Care Physician: Care Physician,No Primary [Primary Care Provider] - Test Results: Test results from this visit will be discussed in further detail at your follow- up appointment, if applicable.
[2018-08-04 13:56] VITALS: BP 115/62; PULSE 82; RESP 18; TEMP 36.8; O2SAT 97
[2018-08-04] MEDS: Acetaminophen 500 MG Tablet 1000 MG PO (14:53)
[2018-08-05 14:34] LABS: Pathology Specimen OB SEE PATHOLOGY REPORT
== END 2018-08-04 17:45 | disposition home or self-care (01) | DRG 805 ==
PROVIDERS: Admitting Provider Obstetrics & Gynecology; Referring Provider Obstetrics & Gynecology; Visit Provider Obstetrics & Gynecology
DX: O26.62 Liver and biliary tract disorders in childbirth (principal); K83.1 Obstruction of bile duct; Z37.0 Single live birth; O98.32 Other infections with a predominantly sexual mode of transmission complicating childbirth; E87.6 Hypokalemia; O70.0 First degree perineal laceration during delivery; O69.81X0 Labor and delivery complicated by cord around neck, without compression, not applicable or unspecified; O99.284 Endocrine, nutritional and metabolic diseases complicating childbirth; E03.9 Hypothyroidism, unspecified; A60.00 Herpesviral infection of urogenital system, unspecified; O28.9 Unspecified abnormal findings on antenatal screening of mother; O99.344 Other mental disorders complicating childbirth; F32.9 Major depressive disorder, single episode, unspecified; Z79.899 Other long term (current) drug therapy; Z3A.36 36 weeks gestation of pregnancy
CPT/HCPCS: 59025; 59050; 76816; 76819; 80053; 85025; 86850; 86900; 87653; 88307; 99218; J7120; G0378; J0290; J0702

== ENCOUNTER 2018-12-02 05:55 | Day surgery (SDC) | payer BC, SELFPAY ==
[2018-09-14 14:46] VITALS: BMI 32.8
[2018-11-16 13:47] VITALS: BMI 32.8
--- NOTE | 2018-11-18 01:06 | HP.PCM_ITS ---
- Problem List (1) Abnormal genetic test during Status: Acute Comment: Abnormal NIPT- referred to [facility]. [facility]. (2) Cholestasis during Status: Acute Qualifiers: Comment: growth us RASHEEDA, twice weekly BPPS, weekly visits, and deliver at 37 weeks. kick counts. ursodiol (3) Depression affecting Status: Acute Comment: celexa, trazodone, and vistaril, encouraged counseling. (4) Family history of congenital heart defect Status: Acute Comment: ultrasound/consult with M possible echo (5) Genital herpes affecting Status: Acute Qualifiers: Comment: acyclovir at 36 weeks and PRN (6) Hypothyroidism (acquired) Status: Acute Comment: check tsh and free t4 every trimester, recently tested, sees endocrine (7) Low serum potassium Status: Acute (8) Status: Acute Qualifiers: Comment: carrier screening negative in the past. plan NIPT and AFP. Anatomy US-repeat 2 weeks reevaluate cardiac views. Growth US every 4 weeks. growth scan q4w after 28 weeks and weekly NST after 32 weeks (9) Sterilization Status: Acute (10) Supervision of high risk in third trimester Status: Acute Comment: PRR CHINO 08/27/18 girl Susan Sanchez Freod History and Physical Date of Admission: 12/02/18 Intake Vital Signs 11/16/18 Body Mass Index (BMI) 32.8 11/16/18 Height 5 ft 5 in 11/16/18 Weight: 185 lb 11/16/18 Body Mass Index (BMI) 30.7 11/16/18 Blood Pressure 114/82 H Intake Visit Reasons: pre op Chief Complaint: pre op Forensic Dna Analyst Required: No Is patient in pain?: No Allergies penicillin G Allergy (Mild, Verified 11/16/18 13:12) Other Medications Vit No.130/Iron/Folic [ Vitamins] 1 ea PO DAILY 12/20/17 [History Confirmed 11/16/18] lactobacillus combination no.8 3 billion cell capsule 3,000 mmu cells PO DAILY 12/29/17 [History Confirmed 11/16/18] Citalopram Hydrobromide [Citalopram HBr] 40 mg PO QDAY 06/22/18 [History Confirmed 11/16/18] Levothyroxine Sodium [Synthroid] See Rx Instructions .ROUTE .COMPLEX 06/22/18 [History Confirmed 11/16/18] Valacyclovir HCl [Valtrex] 500 mg PO DAILY 08/02/18 [History Confirmed 11/16/18] desogestrel 0.15 mg-ethinyl estradiol 0.03 mg tablet 1 tab PO QDAY #84 tab 09/14/18 [Rx Confirmed 11/16/18] Is last menstrual period known: No Post menopausal: No Patient : No : No PFSH Medical History Anxiety and depression (Acute) Back problem (Acute) Keyanna's disease (Acute) Headache (Acute) Hypothyroidism (Acute) Kidney stones (Acute) Recurrent UTI (Acute) Surgical History H/O lithotripsy (Acute) History of cholecystectomy (Acute) Status post eye surgery (Acute) History of hernia surgery (Acute) History of tonsillectomy (Acute) laparoscopic surgery (Acute) Family History Mother CVA (cerebral vascular accident) Myocardial infarction Heart disease Grandmother Cancer ovarian cancer Colon cancer Breast cancer Thyroid disorder Social History (Updated 11/16/18 @ 14:14 by Sierra Olmstead MD) Smoking Status: Never smoker alcohol intake: never substance use type: does not use caffeine: Yes what type of physical activity do you participate in: none seatbelt use: always do you feel safe at home: Yes additional social history: -Pro- Patient works at [employer] HPI pre op: Details: SAL BROWN is a 33 year old who presents for preop visit. Female Reproductive History Menopausal Symptoms: No night sweats Pregancy History 2 Elective abortions Hx Para 1 Spontaneous abortions Hx # Term Pregnancies Ectopic pregnancies Hx # Pregnancies Multiple births # of living children 2 Past Pregnancies Del. Date Name GA/Weeks Outcome Route Bth Weight Infant Gen Labor Lgth Anesthesia Del Locatn Provider FOB 11/19/13 Juma 37 live - full term 6lbs 9oz Male 2 9 hours epidural [facility] 08/03/18 Maurice 36 live - Female pudendal [facility] Delivery Date: 11/19/13 On 12/29/17 @ 10:13 Vanessa Wang No issues during . Had infection after delivery. Delivery Date: 08/03/18 On 08/05/18 @ 14:04 Vicky Fischer Cholestasis ROS Const Constitutional: Denies fatigue, night sweats, weight gain or weight loss ENT ENT: Reports system reviewed and no additional complaints, except as docu Cardio Card: Denies chest pain Resp Resp: Denies cough or dyspnea GI GI: Reports as per HPI; denies abdominal pain, constipation, nausea or vomiting : Denies nipple discharge, urinary frequency, urinary incontinence, urinary hesitancy, urinary urgency, vaginal discharge, vaginal dryness, vaginal odor or vaginal itching Musc Musc: Denies joint pain, back pain or muscle weakness Skin Skin/Breast: Denies hair loss, change in hair, dry skin, breast lump, breast pain, breast skin changes or nipple discharge Neuro Neuro: Reports system reviewed and no additional complaints, except as docu Psych Psych: Reports system reviewed and no additional complaints, except as docu Endo Endo: Denies cold intolerance, excessive sweating, heat intolerance or increased thirst Alex/Lymph Hematologic/Lymphatic: Denies easy bleeding, Denies easy bruising, Denies enlarged lymph nodes Exam Const General: cooperative, healthy appearing, comfortable, no acute distress, well developed Orientation: alert [facility] Head: normal to inspection, normocephalic Ears: hearing grossly normal bilaterally, external ears normal Nose: external nose normal, nares normal Face and sinus: normal facial exam Neck Neck: normal visual inspection, no lymphadenopathy Thyroid: thyroid normal Chest Chest palpation & inspection: normal inspection of the chest Resp Effort & Inspection: normal respiratory effort Auscultation: clear to auscultation bilaterally Cardio Rate: regular rate Rhythm: regular rhythm Heart Sounds: S1 normal, S2 normal GI Inspection: normal to inspection, non-distended Palpation: soft, no hepatosplenomegaly Musc Other: gross motor intact no deficits, full bilateral strength Skin General: no rashes or lesions noted Neuro General: alert, awake, moves all extremities, no focal motor deficits Motor: muscle tone normal throughout Extrem General: normal to inspection, no pedal edema Psych Appearance: grossly normal Mental Status: mental status grossly normal Affect: normal affect Speech and Movement: speech and movement normal Assessment & Plan Problems 1. Sterilization Z30.2 Plan discussed surgical risks including risks of anesthesia, infection, bleeding, injury to bowel, bladder or blood vessels, and patient wishes to proceed with surgery. Coding Level of Care Code No Charge Diagnoses Sterilization Z30.2 UPDATE- I have seen the patient and performed any clinically relevant updates to the history and physical exam. Sierra Olmstead MD
[2018-12-02] VITALS (7 sets, daily range): BP systolic 106–122; BP diastolic 62–72; PULSE 63–76; RESP 16–18; TEMP 36.3–37.1; O2SAT 97–100; BMI 30.5
[2018-12-02 06:28] LABS: Hematocrit 36.9 % (37-47); Mean Corp Hgb Conc 32.5 g/dL (32-36); Mean Corpuscular Hgb 26.9 pg (27.0-32.0); Mean Corpuscular Volume 82.7 fL (81-99); Mean Platelet Vol. 10.6 fl (6.2-12.0); Platelet Count 244 K/mm3 (150-450); RBC Distribution Width CV 14.6 % (11.6-14.6); RBC Distribution Width SD 44.3 fl (35.1-43.9); Red Blood Count 4.46 M/mm3 (4.2-5.4); White Blood Count 7.7 K/mm3 (4.4-11.0)
[2018-12-02 06:31] LABS: Internal QC Validated? YES +Cl - CLEAR BKGD; Pregnancy, Urine Negative Negative
--- NOTE | 2018-12-02 08:00 | FALS_PTH ---
PATIENT: SAL BROWN [place] [facility] [place][id number] AGE/SX: 33/F ROOM: RE12/02/[address]: Dr. Sierra Olmstead MD : 1985 BED: DIS: 12/02/2018 SPEC #: [id number] RECD: 12/02/18 10:09 STATUS: [place] MED #: [id number] DOYLE: 12/02/18 08:[address]: Sierra Olmstead DEPT: SURGICAL PATHOLOGY RECD BY: Satya Kerr ENTERED: 12/02/18 13:35 SP TYPE: FALL TUBES OTHR DR: Kala Primary Care Phys Tissues: Fallopian tube Procedures: Surgery Specimen Level II HEADER OPERATION: Laparoscopic salpingectomy PRE-OP DIAGNOSIS: Desires sterilization TISSUE SUBMITTED: Right and left fallopian tubes MICROSCOPIC DIAGNOSIS Right and left fallopian tubes, salpingectomies: Two complete segments of fallopian tubes with no significant pathologic change. AM:maria teresa 12/03/18 MICROSCOPIC DESCRIPTION Slides are reviewed. GROSS DESCRIPTION Received is one container labeled with the patient's name and designated bilateral fallopian tubes. The specimen consists of bilateral fallopian tubes including fimbrial ends measuring 5 cm in length and 0.5 cm in diameter. Sections do not reveal any mass lesion. The fallopian tubes are not identified as right or left. Sections reveal unremarkable cut surfaces. Automobile Rental Clerk sections are submitted in two cassettes with each cassette containing one fallopian tube. / CHON:maria teresa 12/02/18 TC:5 CPT: 91063 x2
[2018-12-02] MEDS: Bupivacaine 0.25% 30 ML Vial (09:00)
--- NOTE | 2018-12-02 10:44 | DCINST_ITS ---
Discharge Diet: No Restrictions - Increase fluid intake for the next 48 hours. Discharge Activity: Return to Normal Activity, May Drive - when you are no longer taking narcotic pain medications., May Shower, May Take a Tub Bath - in 7 days Additional Activity Instructions:: Ambulate often the next week after surgery. Nothing in the vagina for 5 days. Call your doctor if your incision/area has: Continuous Slow Oozing, Sudden Increased Bleeding, Increased Pain/ Swelling, Increased Redness, Foul Smelling Discharge Call your doctor if you observe: Fever of 101 or Higher Allergies/Adverse Reactions: Allergies penicillin G Adverse Reaction (Mild, Verified 11/25/18 10:05) Other yeast infections Medications to take at Discharge lactobacillus combination no.8 3 billion cell capsule 3,000 mmu cells PO DAILY 12/29/17 Citalopram Hydrobromide [Citalopram HBr] 40 mg PO QDAY 06/22/18 Valacyclovir HCl [Valtrex] 500 mg PO DAILY 08/02/18 desogestrel 0.15 mg-ethinyl estradiol 0.03 mg tablet 1 tab PO QDAY #84 tab 09/14/18 Levothyroxine [Synthroid] 112 mcg PO DAILY 11/25/18 Naproxen [Naprosyn] 250 - 500 mg PO Q8H PRN PRN #30 tab 12/02/18 Oxycodone HCl/Acetaminophen [Percocet 5-325] 1 - 2 tab PO Q4H PRN PRN 7 Days #15 tab 12/02/18 The following prescriptions were given: Naproxen [Naprosyn] 250 - 500 mg PO Q8H PRN PRN #30 tab PRN Reason: MILD PAIN Transmission Status: Received by [facility] Oxycodone HCl/Acetaminophen [Percocet 5-325] 1 - 2 tab PO Q4H PRN PRN 7 Days #15 tab PRN Reason: Pain Prescription Printed Primary Care Physician: Care Physician,No Primary [Primary Care Provider] - Test Results: Test results from this visit will be discussed in further detail at your follow- up appointment, if applicable. Please Follow Up With: Sierra Olmstead MD - [phone]
--- NOTE | 2018-12-02 11:23 | OP.PCM_ITS ---
Problem List (1) Hypothyroidism (acquired) Status: Acute Comment: check tsh and free t4 every trimester, recently tested, sees endocrine (2) Sterilization Status: Acute Report of Operation Date of Procedure: 12/02/18 Pre-Operative Diagnosis: sterilization Post-Operative Diagnosis: same Surgery/Procedure Performed:: Laparoscopic bilateral salpingectomy Description of Surgical Findings:: Normal uterus tubes and ovaries assistant kitchen manager: Latasha Cardenas Type of Anesthesia:: General Special Medications: none Specimen's removed: tubes Drains: none Estimated Blood Loss (mL): 25 Fluids Replaced: Crystalloid Description of Procedure: Patient was taken in the operating room and was placed under general anesthesia was prepped and draped in normal sterile fashion in the dorsal lithotomy position. Bladder was drained of clear urine and SCDs were on preoperatively. Uterus was sounded and a uterine manipulator was placed after dilating. Attention was then paid to the abdominal portion of the procedure and the umbilicus was elevated with towel clamps and injected with Marcaine and after a 5 mm incision was made and the Veress needle was entered into the abdomen confirmed to be intra-abdominal with a low opening pressure of less than 5 mmHg. Abdomen was insufflated with CO2 gas and a 5 mm optical trocar was placed under direct visualization. A left lower quadrant 5 mm port and a 5 mm port suprapubically replaced under direct visualization. Uterus was well visualized and bilateral fallopian tubes identified and bilateral tubes were elevated and transecting across the mesosalpinx and the attachment to the uterine corpus bilaterally the tubes were removed without complication. Excellent hemostasis was noted. Fallopian tubes were removed through the lower port sites without complication. Liver and upper abdomen were visualized notably within normal limits and no other gross abnormalities were seen in the abdomen. All instruments removed from the abdomen after gas was desufflated. Port sites were closed with 3-0 Monocryl Steri's and op sites were applied. All instruments removed from the vagina and patient was awoken and taken recovery in stable condition. Grafts/Implants Used: none - Complications none Multi Select Codes - Urinary/Genital Urinary/Genital CPT Codes: Other Procedure See Report - 34811
== END 2018-12-02 11:35 | disposition home or self-care (01) ==
LOC: SDC 05:55 → AC 05:56
PROVIDERS: Referring Provider Obstetrics & Gynecology; Visit Provider Obstetrics & Gynecology
PROC: (CPT 58661; principal; 2018-12-02 07:45)
DX: Z30.2 Encounter for sterilization (principal); E87.6 Hypokalemia; E03.9 Hypothyroidism, unspecified; F32.9 Major depressive disorder, single episode, unspecified; F41.9 Anxiety disorder, unspecified; Z88.0 Allergy status to penicillin; Z79.899 Other long term (current) drug therapy; Z87.442 Personal history of urinary calculi; Z87.440 Personal history of urinary (tract) infections; Z90.49 Acquired absence of other specified parts of digestive tract
CPT/HCPCS: 00840; 58661; 81025; 85027; 86850; 86900; 88302; J7120; J2405

== ENCOUNTER → 2023-02-17 | Outpatient (CLI) | payer BC, SELFPAY ==
[2023-02-22 13:07] LABS: HPV APTIMA, High Risk Negative (Negative)
== END | disposition home or self-care (01) ==
PROVIDERS: Referring Provider Nurse Practitioner Women's Health; Visit Provider Nurse Practitioner Women's Health
DX: Z12.4 Encounter for screening for malignant neoplasm of cervix (principal)
CPT/HCPCS: 87624; 88175; G0145